=== PATIENT | male | born 1965 | race Caucasian/White ===

== ENCOUNTER 2020-01-08 15:22 | Inpatient (IN) | payer OTHER ==
[2020-01-08 18:48] VITALS: BMI 33.9
--- NOTE | 2020-01-08 18:59 | HP ---
CIWA Score Nausea/Vomitin Muscle Tremors: 4-Moderate,w/Arms Extend Anxiety: 1-Mildly Anxious Agitation: 1-Slight > Activity Paroxysmal Sweats: 3 (Increased facial moisture) Orientation: 1-Uncertain about Date Tacttile Disturbances: 0-None Auditory Disturbances: 0-None Visual Disturbances: 0-None Headache: 4-Moderately Severe (Temples - throbbing "7") CIWA-Ar Total Score: 17 - Admission Criteria OASAS Guidelines: Admission for Medically Managed Detox: Requires at least one of the followin. CIWA greater than 12 2. Seizures within the past 24 hours 3. Delirium tremens within the past 24 hours 4. Hallucinations within the past 24 hours 5. Acute intervention needed for co occurring medical disorder 6. Acute intervention needed for co occurring psychiatric disorder 7. Severe withdrawal that cannot be handled at a lower level of care (continued vomiting, continued diarrhea, abnormal vital signs) requiring intravenous medication and/or fluids 8. Patient presents the following: CIWA greater than 12 Admission Criteria Met: Admission criteria met Admission [facility] Chief Complaint: I need to be detoxed. I was clean for 20 years and I relapsed x 2 months ago. Allergies/Adverse Reactions: Allergies Allergy/AdvReac Type Severity Reaction Status Date / Time No Known Allergies Allergy Verified 01/08/20 18:55 History of Present Illness: 54 yo presents w/ alcohol withdrawal seeking detox. CASSIE: 0.012 UTox: +THC Hx: blackouts and deliriums. States had two seizures 1 week ago- was not seen by any medical provider. Alcohol use began at age 25. Stopped at [age]. Relapsed 2 months ago. Currently 1 liter alcohol + Beer daily. Last drink about 10 am. Marijuana use began at age 27. Smokes 3 -4 joints/day. Sporadic cocaine and heroin use x past 2 months. Denies nicotine use. PMHx: GERD; Occ SOB (w/ walking - Asthma as a child. Denies asthma meds) States COVID + 15 days ago. (States only symptoms was (R) lung burning and headache. No fever. Lasted x 7 days.) MHHx: Depression. Insomnia. Stopped MH meds 1 yr ago. Last saw MH Provider 6 months ago. Denies thoughts of harming self or others. SHx: Homeless. Unemployed. Denies legal issues. Search Terms: Terrykaya Caban, 1965 Search Date: 01/08/2020 18:58:21 PM The Drug Utilization Report below displays all of the controlled substance prescriptions, if any, that your patient has filled in the last twelve months. The information displayed on this report is compiled from pharmacy submissions to the Department, and accurately reflects the information as submitted by the pharmacies. This report was requested by: Josseline Guajardo | Reference #: [id number] There are no results for the search terms that you entered. Exam Limitations: No Limitations - Ebola screening Have you traveled outside of the country in the last 21 days: No (COVID + 15 days ago) Have you had contact with anyone from an Ebola affected area: No Have you been sick,other than usual withdrawal symptoms: No Do you have a fever: No - Review of Systems Constitutional: Chills, Diaphoresis, Changes in sleep (Difficulty falling asleep), Weight Stable EENT: reports: Blurred Vision Respiratory: reports: SOB with Exertion Cardiac: reports: Irregular Heart Rate (Tachycardia) GI: reports: Nausea, Indigestion : reports: No Symptoms Reported Musculoskeletal: reports: Back Pain (Chronic pinching in bone LBP "9") Integumentary: reports: No Symptoms Reported Neuro: reports: Headache (Temples - throbbing "7"), Tingling, Tremors Endocrine: reports: Increased Thirst Hematology: reports: No Symptoms Reported Psychiatric: reports: Judgement Intact, Agitated, Anxious, Depressed Patient History - PPD History Previous Implant?: Yes Documented Results: Negative w/o proof Implanted On Prior [facility] Admission?: No PPD to be Administered?: Yes - Smoking Cessation Smoking history: Former smoker Have you smoked in the past 12 months: No Hx Chewing Tobacco Use: No Initiated information on smoking cessation: No - Substance & Tx. History Hx Alcohol Use: Yes Hx Substance Use: Yes Substance Use Type: Alcohol Hx Substance Use Treatment: No (detox/rehab - years ago) - Substances abused Alcohol Substance route: Oral Frequency: Daily Amount used: liquor- 1 liter, beer- 1 case Age of first use: 25 Date of last use: 01/08/20 Marijuana/Hashish Substance route: Smoking Frequency: Daily Amount used: 3 blunts Age of first use: 27 Date of last use: 01/08/20 Admission Physical Exam [facility] - Physical General Appearance: Yes: Nourished, Mild Distress, Tremorous, Sweating (Increased facial moisture), Anxious HEENTM: Yes: EOMI, Hearing grossly Normal, Normocephalic, Normal Voice, BROOKE (Pupils = 3 mm), Pharynx Normal Respiratory: Yes: Lungs Clear (Pulse Ox = 97 %), Normal Breath Sounds, No Respiratory Distress Neck: Yes: No masses,lesions,Nodules, Supple Breast: Yes: Breast Exam Deferred Cardiology: Yes: Regular Rhythm, Regular Rate (HR: 72), S1, S2 Abdominal: Yes: Non Tender, Soft, Increased Bowel Sounds, Protuberent (Increased abdominal adiposity) Genitourinary: Yes: Within Normal Limits Back: Yes: Normal Inspection Musculoskeletal: Yes: full range of Motion, Gait Steady Extremities: Yes: Normal Capillary Refill, Tremors Neurological: Yes: pediatric medical assistant II-XII NML intact, Alert, Motor Strength 5/5, Normal Response Integumentary: Yes: Normal Color, Warm, Moist (Increased facial moisture) Lymphatic: Yes: Within Normal Limits - Diagnostic (1) Alcohol dependence with withdrawal, uncomplicated Current Visit: Yes Status: Acute (2) Cannabis dependence, uncomplicated Current Visit: Yes Status: Chronic (3) Obesity (BMI 30.0-34.9) Current Visit: Yes Status: Chronic (4) History of asthma Current Visit: Yes Status: Suspected (5) Chronic low back pain Current Visit: Yes Status: Chronic Qualifiers: Back pain laterality: midline Sciatica presence: unspecified whether sciatica present Qualified Code(s): M54.5 - Low back pain; G89.29 - Other c hronic pain (6) Acid reflux Current Visit: Yes Status: Chronic Qualifiers: Esophagitis presence: esophagitis presence not specified Qualified Code(s): K21.9 - Gastro-esophageal reflux disease without esophagitis Cleared for Admission [facility] - Detox or Rehab [facility] Level of Care: Medically Managed Detox Regimen/Protocol: Librium Claeared for Rehab Admission: No Inpatient Rehab Admission - Rehab Decision to Admit Inpatient rehab admission?: No
[2020-01-08] MEDS ORDERED: IBUPROFEN 400 MG TABLET (FP) PO PRN (19:32)
[2020-01-08] MEDS ORDERED: chlordiazePOXIDE HCL 25 MG CAPSULE PO ONE (19:32)
[2020-01-08] MEDS ORDERED: ONDANSETRON *ODT* 4 MG TABLET SL ONE (19:32)
[2020-01-08] MEDS ORDERED: ACETAMINOPHEN 325 MG TABLET (FP) PO PRN ×2 (19:32)
[2020-01-08] MEDS ORDERED: METHOCARBAMOL 500 MG TABLET PO PRN (19:32)
[2020-01-08] MEDS ORDERED: MAG HYDROX/AL HYDROX/SIMETH 30 ML UNIT-DOSE CUP PO PRN (19:32)
[2020-01-08] MEDS ORDERED: chlordiazePOXIDE HCL 25 MG CAPSULE PO PRN (19:32)
[2020-01-08] MEDS ORDERED: MENTHOL/PHENOL 1 EACH UD MM PRN (19:32)
[2020-01-08] MEDS ORDERED: NICOTINE POLACRILEX 2 MG GUM BUC PRN (19:32)
[2020-01-08] MEDS ORDERED: MAGNESIUM HYDROX 2400MG/30ML ORAL SUSPENSION 30 ML CUP PO PRN (19:32)
[2020-01-08] MEDS ORDERED: MAGNESIUM CITRATE 300 ML BOTTLE PO PRN (19:32)
[2020-01-08] MEDS ORDERED: guaiFENesin 200 MG/10 ML 10 ML UNIT-DOSE CUPS PO PRN (19:32)
[2020-01-08] MEDS ORDERED: BISMUTH SUBSALICYLATE 524 MG/30 ML UD PO PRN (19:32)
[2020-01-08] MEDS ORDERED: GABAPENTIN 100 MG CAPSULE PO PRN (19:36)
[2020-01-08] MEDS: THIAMINE HCL 100 MG TABLET (FP) PO SCH (22:01)
[2020-01-08] MEDS: chlordiazePOXIDE HCL 25 MG CAPSULE PO SCH (22:01)
[2020-01-08] MEDS: MELATONIN 5 MG TABLETS PO SCH (22:01)
[2020-01-08] MEDS ORDERED: QUEtiapine FUMARATE 50 MG TABLET PO ONE (23:00)
[2020-01-09] MEDS: chlordiazePOXIDE HCL 25 MG CAPSULE PO SCH ×4 (05:46→22:19)
--- NOTE | 2020-01-09 09:46 | CONSULT ---
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 Refer to addiction counselor's summary for further information Medical History: Significant for bronchial asthma, GERD Psychiatric History: This is patient's first admission to this facility. He reports that his first psychiatric contact occured at age 30-29 while in [place]. He said that one of children from his first and he was drinking heavy. He said that he was prescribed medication but was not fully adherent to it because of his drinking. He said he went to a rehabilitation program at age 32 and he was able to stay sober till age 52. He became depressed again after his second and started seeing a psychiatrist in [facility] in March 2019. He said that he last saw the psychiatrist in September 2019 and he was prescribed Seroquel 300 mg/hs and Gabapentin 300 mg/hs. told procedure writer that he was not fully compliant with Seroquel but he was taiking Gabapentin 300 mg/day in the [facility]. Denies previous psychiatric hospitalization or suicidal attempt. At present, feeling deressed, anxious and sleeping poorly Physical/Sexual Abuse/Trauma History: Denies history of abuse as a child or DV relationship Mental Status Exam - Mental Status Exam Alert and Oriented to: Time, Place, Person Cognitive Function: Fair Patient Appearance: Disheveled Mood: Depressed, Anxious Affect: Appropriate Speech Pattern: Clear Voice Loudness: Normal Thought Process: Intact, Goal Oriented Hallucinations: Denies Suicidal Ideation: Denies Homicidal Ideation: Denies Insight/Judgement: Poor Sleep: Poorly Appetite: Good Muscle strength/Tone: Normal Gait/Station: Normal Psychiatric Findings - Problem List (Assumption 1, 2,3) (1) Depressive disorder Current Visit: Yes Status: Chronic (2) MDD (major depressive disorder) Current Visit: Yes Status: Ruled-out (3) Substance induced mood disorder Current Visit: Yes Status: Acute (4) Substance-induced sleep disorder Current Visit: Yes Status: Acute (5) Alcohol dependence with withdrawal, uncomplicated Current Visit: Yes Status: Acute (6) Cannabis dependence, uncomplicated Current Visit: Yes Status: Acute (7) Opioid abuse Current Visit: Yes Status: Acute (8) Cocaine abuse Current Visit: Yes Status: Acute (9) GERD (gastroesophageal reflux disease) Current Visit: Yes Status: Acute (10) Chronic low back pain Current Visit: Yes Status: Chronic Qualifiers: Back pain laterality: midline Sciatica presence: unspecified whether sciatica present Qualified Code(s): M54.5 - Low back pain; G89.29 - Other chronic pain (11) Obesity (BMI 30.0-34.9) Current Visit: Yes Status: Chronic (12) History of asthma Current Visit: Yes Status: Chronic - Initial Treatment Plan Initial Treatment Plan: 1) Start Gabapentin 300 mg po daily and Seroquel 100 mg po HS. 2) Continue inpatient detoxification
--- NOTE | 2020-01-09 10:13 | EKG ---
Test Reason : Blood Pressure : / mmHG Vent. Rate : 070 BPM Atrial Rate : 070 BPM P-R Int : 140 ms QRS Dur : 090 ms QT Int : 432 ms P-R-T Axes : 006 058 066 degrees QTc Int : 466 ms NORMAL SINUS RHYTHM NONSPECIFIC T WAVE ABNORMALITY PROLONGED QT ABNORMAL ECG NO PREVIOUS ECGS AVAILABLE Confirmed by Mitesh Carpenter MD ([id number]) on 01/09/2020 10:13:47 AM Referred By: Confirmed By:Mitesh Carpenter MD
[2020-01-09] MEDS ORDERED: QUEtiapine FUMARATE 300 MG TABLET PO SCH (10:15)
[2020-01-09] MEDS: PRENATAL VITAMINS W/ FOLIC ACID TABLET (FP) PO SCH (10:18)
[2020-01-09] MEDS: PANTOPRAZOLE 40 MG TABLET PO SCH (10:18)
[2020-01-09] MEDS ORDERED: GABAPENTIN 100 MG CAPSULE PO ONE (10:30)
[2020-01-09] MEDS ORDERED: ONDANSETRON *ODT* 4 MG TABLET SL PRN (11:03)
--- NOTE | 2020-01-09 11:08 | PN ---
[facility] CIWA - CIWA Score Nausea/Vomitin-Mild Nausea/No Vomiting Muscle Tremors: 3 Anxiety: 2 Agitation: 3 Paroxysmal Sweats: 2 Orientation: 0-Oriented Tacttile Disturbances: 0-None Auditory Disturbances: 0-None Visual Disturbances: 0-None Headache: 0-None Present CIWA-Ar Total Score: 11 S Progress Note (SOAP) Subjective: nausea sweats shakes irritable body aches interrupted sleep Objective: 01/09/20 11:04 Vital Signs Temperature 97.3 F L 01/09/20 08:49 Pulse Rate 83 01/09/20 08:49 Respiratory Rate 16 01/09/20 08:49 Blood Pressure 127/71 01/09/20 08:49 O2 Sat by Pulse Oximetry (%) 96 01/09/20 05:53 labs pending aaox3 ambulating no acute distress Assessment: 01/09/20 11:05 withdrawals Plan: continue detox increase fluids neto moreno prn
[2020-01-09 11:28] LABS: HEMOGLOBIN 13.9 GM/dL (11.7-16.9); MEAN CELL VOLUME 91.1 fl (80-96); MEAN PLT VOLUME 9.6 fl (7.5-11.1); PLATELET COUNT 223 K/MM3 (134-434); RBC 4.61 M/mm3 (4.00-5.60); RDW 15.4 % (11.9-15.9); WHITE BLOOD COUNT 6.5 K/mm3 (4.0-10.0)
[2020-01-09 11:29] LABS: ALBUMIN 3.3 g/dl (3.4-5.0); BILIRUBIN,TOTAL 0.8 mg/dL (0.2-1); BLOOD UREA NITROGEN 11.5 mg/dL (7-18); CALCIUM 8.4 mg/dL (8.5-10.1); POTASSIUM 4.3 mmol/L (3.5-5.1); TOT PROT 6.6 g/dl (6.4-8.2)
[2020-01-09] MEDS: hydrOXYzine PAMOATE 25 MG CAPSULE (FP) PO PRN (19:16)
[2020-01-09] MEDS: THIAMINE HCL 100 MG TABLET (FP) PO SCH (22:19)
[2020-01-09] MEDS: QUEtiapine FUMARATE 100 MG TABLET (FP) PO SCH (22:19)
[2020-01-09] MEDS: MELATONIN 5 MG TABLETS PO SCH (22:24)
[2020-01-10] MEDS: chlordiazePOXIDE HCL 25 MG CAPSULE PO SCH ×4 (05:44→22:08)
[2020-01-10] MEDS: GABAPENTIN 300 MG CAPSULE PO SCH (10:02)
[2020-01-10] MEDS: PRENATAL VITAMINS W/ FOLIC ACID TABLET (FP) PO SCH (10:02)
[2020-01-10] MEDS: PANTOPRAZOLE 40 MG TABLET PO SCH (10:02)
[2020-01-10] MEDS: hydrOXYzine PAMOATE 25 MG CAPSULE (FP) PO PRN ×2 (10:04→19:21)
--- NOTE | 2020-01-10 10:34 | PN ---
[facility] CIWA - CIWA Score Nausea/Vomitin-No Nausea/No Vomiting Muscle Tremors: 3 Anxiety: 2 Agitation: 2 Paroxysmal Sweats: 2 Orientation: 0-Oriented Tacttile Disturbances: 0-None Auditory Disturbances: 0-None Visual Disturbances: 0-None Headache: 0-None Present CIWA-Ar Total Score: 9 S Progress Note (SOAP) Subjective: I fell before coming here and never went to the hospital for check up. now my lower back is in pain at times sweats restless Objective: 01/10/20 10:31 Vital Signs Temperature 97.3 F L 01/10/20 09:04 Pulse Rate 78 01/10/20 09:04 Respiratory Rate 18 01/10/20 09:04 Blood Pressure 122/70 01/10/20 09:04 O2 Sat by Pulse Oximetry (%) 96 01/10/20 05:55 Laboratory Tests 01/09/20 01/09/20 01/09/20 08:15 08:15 08:15 WBC 6.5 RBC 4.61 Hgb 13.9 Hct 42.0 MCV 91.1 MCH 30.0 MCHC 33.0 RDW 15.4 Plt Count 223 MPV 9.6 Sodium 141 Potassium 4.3 Chloride 106 Carbon Dioxide 31 Anion Gap 3 L BUN 11.5 Creatinine 1.0 Est GFR (CKD-EPI)AfAm 99.85 Est GFR (CKD-EPI)NonAf 86.15 Random Glucose 86 Calcium 8.4 L Total Bilirubin 0.8 AST 98 H ALT 197 H Alkaline Phosphatase 67 Total Protein 6.6 Albumin 3.3 L Syphilis Serology Non-reactive labs noted aaox3 ambulating no acute distress Assessment: 01/10/20 10:32 withdrawals low back assessed, no bruising noted. pt is able to move hips, legs. pt able to bend forward and side to side with no restrictions. Plan: continue detox lidocaine patch lower back x-ray ordered motrin 800mg prn roboxin prn
[2020-01-10] MEDS ORDERED: IBUPROFEN 400 MG TABLET (FP) PO PRN (10:35)
[2020-01-10] MEDS: LIDOCAINE 5% TOPICAL PATCH TP SCH (14:44)
[2020-01-10] MEDS ORDERED: LIDOCAINE PATCH REMOVAL MC SCH (22:00)
[2020-01-10] MEDS: QUEtiapine FUMARATE 100 MG TABLET (FP) PO SCH (22:07)
[2020-01-10] MEDS: METHYL SALICYLATE/MENTHOL OINT 30 GM TUBE TP SCH (22:07)
[2020-01-10] MEDS: THIAMINE HCL 100 MG TABLET (FP) PO SCH (22:08)
[2020-01-10] MEDS: MELATONIN 5 MG TABLETS PO SCH (22:09)
[2020-01-11] MEDS ORDERED: chlordiazePOXIDE HCL 10 MG CAPSULE PO PRN
[2020-01-11] MEDS: chlordiazePOXIDE HCL 10 MG CAPSULE PO SCH ×3 (06:18→17:56)
[2020-01-11] MEDS: LIDOCAINE 5% TOPICAL PATCH TP SCH (10:18)
[2020-01-11] MEDS: METHYL SALICYLATE/MENTHOL OINT 30 GM TUBE TP SCH (10:18)
[2020-01-11] MEDS: PANTOPRAZOLE 40 MG TABLET PO SCH (10:19)
[2020-01-11] MEDS: PRENATAL VITAMINS W/ FOLIC ACID TABLET (FP) PO SCH (10:19)
[2020-01-11] MEDS: GABAPENTIN 300 MG CAPSULE PO SCH (10:19)
--- NOTE | 2020-01-11 12:21 | PN ---
[facility] CIWA - CIWA Score Nausea/Vomitin-No Nausea/No Vomiting Muscle Tremors: 1-None Visible, but [place] Anxiety: 1-Mildly Anxious Agitation: 1-Slight > Activity Paroxysmal Sweats: No Perspiration Orientation: 0-Oriented Tacttile Disturbances: 0-None Auditory Disturbances: 0-None Visual Disturbances: 0-None Headache: 0-None Present CIWA-Ar Total Score: 3 [facility] Progress Note (SOAP) Subjective: anxious little sweats Objective: 01/11/20 12:20 Vital Signs Temperature 97.1 F L 01/11/20 08:35 Pulse Rate 74 01/11/20 08:35 Respiratory Rate 18 01/11/20 08:35 Blood Pressure 131/79 01/11/20 08:35 O2 Sat by Pulse Oximetry (%) 96 01/11/20 06:02 Laboratory Tests 01/08/20 01/09/20 01/09/20 19:55 08:15 08:15 WBC 6.5 RBC 4.61 Hgb 13.9 Hct 42.0 MCV 91.1 MCH 30.0 MCHC 33.0 RDW 15.4 Plt Count 223 MPV 9.6 Sodium Potassium Chloride Carbon Dioxide Anion Gap BUN Creatinine Est GFR (CKD-EPI)AfAm Est GFR (CKD-EPI)NonAf Random Glucose Calcium Total Bilirubin AST ALT Alkaline Phosphatase Total Protein Albumin Syphilis Serology Non-reactive COVID-19 ([facility]) Not detected 01/09/20 08:15 WBC RBC Hgb Hct MCV MCH MCHC RDW Plt Count MPV Sodium 141 Potassium 4.3 Chloride 106 Carbon Dioxide 31 Anion Gap 3 L BUN 11.5 Creatinine 1.0 Est GFR (CKD-EPI)AfAm 99.85 Est GFR (CKD-EPI)NonAf 86.15 Random Glucose 86 Calcium 8.4 L Total Bilirubin 0.8 AST 98 H ALT 197 H Alkaline Phosphatase 67 Total Protein 6.6 Albumin 3.3 L Syphilis Serology COVID-19 ([facility]) spinal x-ray done; no fx reported no compression. mild degenerative narrowing noted aaox3 ambulating no acute distress Assessment: 01/11/20 12:24 mild withdrawal sx Plan: complete detox d/c in am
[2020-01-11] MEDS: hydrOXYzine PAMOATE 25 MG CAPSULE (FP) PO PRN (17:14)
--- NOTE | 2020-01-11 17:39 | PN ---
S CIWA - CIWA Score Nausea/Vomitin-No Nausea/No Vomiting Muscle Tremors: None Anxiety: 1-Mildly Anxious Agitation: 0-Normal Activity Paroxysmal Sweats: No Perspiration Orientation: 1-Uncertain about Date Tacttile Disturbances: 0-None Auditory Disturbances: 0-None Visual Disturbances: 0-None Headache: 0-None Present (pt requesting to leave .) CIWA-Ar Total Score: 2 [facility] Progress Note (SOAP) Subjective: pt requesting to leave , states he is feeling much better . Per MR , d/c planned for a.m. Pt claims his will pick him up today . pt denies symptoms and refused meds today after morning dose. Vital Signs - 24 hr 01/10/20 01/11/20 01/11/20 20:40 00:41 03:32 Temperature 97.5 F L Pulse Rate 81 Respiratory 20 18 18 Rate Blood Pressure 143/84 O2 Sat by Pulse 95 Oximetry (%) 01/11/20 01/11/20 01/11/20 06:02 06:39 08:35 Temperature 97.2 F L 97.1 F L Pulse Rate 72 74 Respiratory 18 18 18 Rate Blood Pressure 110/71 131/79 O2 Sat by Pulse 96 Oximetry (%) 01/11/20 12:45 Temperature 97.7 F Pulse Rate 86 Respiratory 20 Rate Blood Pressure 120/75 O2 Sat by Pulse 96 Oximetry (%) Objective: CIWA - 2 Ambulating freely , no distress noted . Assessment: AUD Plan: d/c today
--- NOTE | 2020-01-11 18:07 | DS ---
[facility] Detox Discharge Summary Admission Date: 01/08/20 - Physical Exam Results Vital Signs: Vital Signs Temperature 97.7 F 01/11/20 12:45 Pulse Rate 86 01/11/20 12:45 Respiratory Rate 01/11/20 12:45 Blood Pressure 120/75 01/11/20 12:45 O2 Sat by Pulse Oximetry (%) 96 01/11/20 12:45 - Treatment Hospital Course: Detox Protocol Followed, Detoxed Safely, Discharged Condition Good - Medication Discharge Medications: Ambulatory Orders Gabapentin [Neurontin -] 300 mg PO TID 01/08/20 Pantoprazole Sodium [Protonix -] 40 mg PO DAILY 01/08/20 Quetiapine Fumarate [Seroquel -] 300 mg PO HS 01/08/20 - AMA Did Patient Leave Against Medical Advice: No
[2020-01-11 19:10] VITALS: BP 124/75; PULSE 90; TEMP 98.1
[2020-01-12] MEDS ORDERED: chlordiazePOXIDE HCL 10 MG CAPSULE PO SCH (05:00)
[2020-01-13] MEDS ORDERED: chlordiazePOXIDE HCL 10 MG CAPSULE PO ONE (05:00)
== END 2020-01-11 16:20 | disposition home or self-care (01) | DRG 773 ==
LOC: YASAS 15:22 → Y6N 19:22
PROVIDERS: ADMIT Allergy & Immunology; ATTEND Allergy & Immunology
PROC: HZ2ZZZZ Detoxification Services for Substance Abuse Treatment (ICD-10-PCS; principal; 2020-01-08)
DX: F10.230 Alcohol dependence with withdrawal, uncomplicated (principal); F11.10 Opioid abuse, uncomplicated; F12.20 Cannabis dependence, uncomplicated; F14.10 Cocaine abuse, uncomplicated; F19.282 Other psychoactive substance dependence with psychoactive substance-induced sleep disorder; F19.24 Other psychoactive substance dependence with psychoactive substance-induced mood disorder; F32.9 Major depressive disorder, single episode, unspecified; J45.909 Unspecified asthma, uncomplicated; K21.9 Gastro-esophageal reflux disease without esophagitis; E66.9 Obesity, unspecified; Z68.33 Body mass index [BMI] 33.0-33.9, adult; M54.5 Low back pain; G89.29 Other chronic pain; Z91.81 History of falling; Z86.19 Personal history of other infectious and parasitic diseases
CPT/HCPCS: 36415; 72100-TC-FY; 80053; 85027; 86780; 93005; 93010; Q0162; U0003